=== PATIENT | female | born 2000 | race Hispanic/Latino ===

== ENCOUNTER 2018-03-06 23:06 | Inpatient (IN) | payer OTHER ==
[2018-03-06 23:45] VITALS: BMI 27.9
[2018-03-07 00:17] LABS: Amnisure Internal Control QC ACCEPTABLE (ACCEPTABLE)
[2018-03-07 00:27] LABS: Amnisure Test No Membranes Rupture (No Rupture)
--- NOTE | 2018-03-07 00:31 | PDOC.LDHP ---
Labor and Delivery H&P Chief complaint: contractions, loss of fluid HPI: Patient of Dr Madsen at 37 weeks 6 days, with scheduled induction by Dr Madsen soon, here for possible leakake. No VB, good FM, no trauma, no headaches, no fevers. Denies issues. review of systems: complete ROS performed and negative as per HPI. Current gestational age (weeks): 37 (6 days) Dating criteria: last menstrual period Grav: 1 Para: 0 Current complications: none Abnormal US findings: No Current medications: none Previous surgical history: none Allergies/Adverse Reactions: Allergies Allergy/AdvReac Type Severity Reaction Status Date / Time No Known Allergies Allergy Unverified 03/06/18 23:37 Social history: none - Physical Exam Vital signs reviewed and normal: yes General: NAD Heart: RRR Lungs: CTAB Abdomen: gravid FHT: category 1 Neligh contractions every: Irregular on toco - Vaginal Exam cm dilated: 2 Effacement: 75% Station: -1 - Assessment Latent phase of labor, at [facility]. - Plan Plan: observation in L&D (We will collect amnisure. No gross evidence of labor. CX unchnaged from prior office check exam. Observe inn L&D for 1 hour. Admit if evidence of ROM.)
[2018-03-07] MEDS ORDERED: Promethazine HCl 25 MG/ML VIAL IM PRN ×2 (00:51→13:38)
[2018-03-07] MEDS ORDERED: Lidocaine 1% (PF) 30 ML VIAL SC PRN (00:51)
[2018-03-07] MEDS ORDERED: HYDROcodone/Acetaminophen 5/325 mg Tablet PO PRN ×2 (00:51)
[2018-03-07] MEDS ORDERED: LR / Pitocin 40 units/1000 ml 1,000 ML IV PRN (00:51)
[2018-03-07] MEDS ORDERED: Ibuprofen 800 MG TAB PO PRN (00:51)
--- NOTE | 2018-03-07 00:51 | PDOC.EVN ---
Event Note - Event Note Event Note: Follow up: Amnisure was negative... However, the patient's story for leakage (by my interview again) was pretty concerning for ROM (persistent leakage down leg). Therefore, I performed another detailed vaginal exam at bedside. During cervical exam (), I pushed the fertal head up and had her cough and valsalva...that produced a small amount of clear fluid compatible with ROM. DX: false negative amnisure, positive evidence ROM on exam...will admit to Dr boswell. GBS negative. Plan d/w patient and family in detail.
--- NOTE | 2018-03-07 00:55 | PDOC.EVN ---
Event Note - Event Note Event Note: For DX of PROM...corrected EGA was03/15/18 by review of the record...38 weeks 6 days....I have ordered vaginal cytotec 25 mcg [address] Q3 [address]. Dr Madsen notified of patient admisison. She was scheduled today for induction by elbert at 5 pm.
[2018-03-07] MEDS ORDERED: Misoprostol 100 MCG TAB VAG SCH (01:00)
[2018-03-07] MEDS: Lactated Ringer's 1,000 ML IV SCH ×3 (02:00→13:09)
[2018-03-07 02:19] LABS: Hemoglobin 10.9 g/dL (12.0-16.0); Mean Corpuscular HGB CONC 35.7 g/dL (32.0-36.0); Mean Corpuscular Hemoglobin 31.9 pg (25.0-35.0); Mean Corpuscular Volume 89.2 fl (77.0-87.0); Mean Platelet Volume 7.4 fL (7.4-10.4); Platelet Count 283 thou/uL (130-400); RBC Distribution Width 11.5 % (11.5-14.5); Red Blood Cell (RBC) Count 3.41 mill/uL (4.00-5.20)
[2018-03-07] MEDS: LR 500 ML/Oxytocin 10 units 500 ML IVPB SCH ×2 (02:22→14:27)
[2018-03-07 03:00] LABS: HBSAg Index 0.74 S/CO (0-0.99); HIV (1/2) Antibody/Antigen Non-Reactive (NonReactive); HIV 1/2 INDEX 0.14 S/CO (<1.00); Hep B Surf Ag Non-Reactive S/CO (NonReactive)
[2018-03-07 05:16] LABS: Syphilis Antibody Nonreactive (Nonreactive); Syphilis Antibody Index 0.05 S/CO (<1.00 Non-Reactive)
[2018-03-07] MEDS ORDERED: DISCONTINUE ALL PREVIOUS NARCOTICS FS SCH (12:00)
[2018-03-07] MEDS ORDERED: Bupivacaine 0.5% 10 ML VIAL ONE (12:49)
[2018-03-07] MEDS ORDERED: Fentanyl 100 MCG/2 ML VIAL ONE (12:49)
[2018-03-07] MEDS: Bupivacaine 0.5% 20 ML, fentaNYL Citrate/PF 400 MCG in Sodium Chloride 0.9% 72 ML EPIDURAL SCH ×2 (13:10→20:00)
[2018-03-07] MEDS ORDERED: Fentanyl 100 MCG/2 ML VIAL I-THECAL ONE (13:35)
[2018-03-07] MEDS ORDERED: diphenhydrAMINE 50 MG/ML VIAL IVP PRN (13:38)
[2018-03-07] MEDS ORDERED: Naloxone HCl 0.4 mg/ml Vial IVP PRN ×2 (13:38)
[2018-03-07] MEDS ORDERED: ePHEDrine/0.9% NaCl/PF SYRINGE 50 mg/10 ml SLOW IVP PRN (13:38)
[2018-03-07] MEDS ORDERED: Ondansetron HCl/PF 4 MG/2 ML Vial IVP PRN ×2 (13:38→21:36)
[2018-03-07] MEDS ORDERED: Acetaminophen 325 MG TAB PO PRN (13:38)
[2018-03-07] MEDS ORDERED: Eucerin (Mineral Oil/Petrolatum,White) 30 gm Jar TOP PRN (13:38)
[2018-03-07] MEDS ORDERED: Lactated Ringer's 500 ML IV PRN (13:38)
[2018-03-07] MEDS ORDERED: Bupivacaine 0.25% 10 ML VIAL EPIDURAL ONE (13:45)
[2018-03-07] MEDS ORDERED: Communication Order-Pharmacy FS SCH (13:45)
[2018-03-07] MEDS ORDERED: Fentanyl 4mcg/Marcaine 0.1% Cassette 100 ML EPIDURAL SCH (13:45)
[2018-03-07] MEDS ORDERED: Ampicillin 2 GM in Sodium Chloride 0.9% 100 ML IVPB SCH (18:00)
[2018-03-07] MEDS ORDERED: Benzocaine/Menthol 20-0.5% 60 ML CAN TOP PRN (21:36)
[2018-03-07] MEDS ORDERED: Bisacodyl 10 MG SUPP PR PRN (21:36)
[2018-03-07] MEDS ORDERED: Acetaminophen/Codeine 30-300mg Tablet PO PRN ×2 (21:36)
[2018-03-07] MEDS ORDERED: Preparation H Ointment 28 GM TUBE PR PRN (21:36)
[2018-03-07] MEDS ORDERED: Zolpidem Tartrate 5 MG TAB PO PRN (21:36)
[2018-03-07] MEDS ORDERED: Lanolin Ointment 7 GM TUBE TOP PRN (21:36)
[2018-03-07] MEDS ORDERED: diphenhydrAMINE 25 MG CAP PO PRN (21:36)
[2018-03-07] MEDS ORDERED: Milk Of Magnesia 30 ML UDCUP PO PRN (21:36)
[2018-03-07] MEDS ORDERED: LR / Pitocin 40 units/1000 ml 1,000 ML IV SCH (21:45)
[2018-03-08] MEDS: Ampicillin/Sulbactam 3 GM in Sodium Chloride 0.9% 100 ML IVPB SCH ×3 (00:04→11:38)
[2018-03-08] MEDS: Ibuprofen 800 MG TAB PO SCH ×4 (00:30→22:07)
[2018-03-08] MEDS ORDERED: Sodium Chloride 0.9% 10 ML ONE ×2 (04:08→05:58)
[2018-03-08 06:09] LABS: Hemoglobin 9.5 g/dL (12.0-16.0); Mean Corpuscular HGB CONC 34.8 g/dL (32.0-36.0); Mean Corpuscular Hemoglobin 31.3 pg (25.0-35.0); Mean Platelet Volume 7.7 fL (7.4-10.4); Platelet Count 246 thou/uL (130-400); RBC Distribution Width 11.5 % (11.5-14.5); Red Blood Cell (RBC) Count 3.04 mill/uL (4.00-5.20); White Blood Cell (WBC) Count 23.3 thou/uL (4.8-10.8)
[2018-03-08] MEDS ORDERED: Adacel (T-DAP) 0.5 ML VIAL IM ONE (09:00)
[2018-03-08] MEDS: Docusate Calcium (SURFAK) 240 MG CAP PO SCH ×2 (10:06→21:26)
[2018-03-08] MEDS: Ferrous Sulfate 325 MG TAB PO SCH ×2 (10:06→17:43)
[2018-03-08] MEDS: Prenatal Vitamin 1 TAB PO SCH (10:06)
[2018-03-09] MEDS: Ampicillin/Sulbactam 3 GM in Sodium Chloride 0.9% 100 ML IVPB SCH ×2 (01:57→05:53)
[2018-03-09] MEDS: Ibuprofen 800 MG TAB PO SCH (05:57)
[2018-03-09] MEDS: Docusate Calcium (SURFAK) 240 MG CAP PO SCH (08:44)
[2018-03-09] MEDS: Prenatal Vitamin 1 TAB PO SCH (08:44)
[2018-03-09] MEDS: Ferrous Sulfate 325 MG TAB PO SCH (08:44)
[2018-03-09 09:28] VITALS: BP 112/53; TEMP 97.7
== END 2018-03-09 13:30 | disposition home or self-care (01) | DRG 774 ==
LOC: L&D/OP 23:06 → L&D 03-07 00:53 → 3SW 03-07 23:49
PROVIDERS: ADMIT Obstetrics & Gynecology; ATTEND Obstetrics & Gynecology
PROC: 10D07Z6 Extraction of Products of Conception, Vacuum, Via Natural or Artificial Opening (ICD-10-PCS; principal; 2018-03-07)
PROC: 0KQM0ZZ Repair Perineum Muscle, Open Approach (ICD-10-PCS; 2018-03-07)
PROC: 3E033VJ Introduction of Other Hormone into Peripheral Vein, Percutaneous Approach (ICD-10-PCS; 2018-03-07)
DX: O42.02 Full-term premature rupture of membranes, onset of labor within 24 hours of rupture (principal); O75.2 Pyrexia during labor, not elsewhere classified; Z37.0 Single live birth; O70.1 Second degree perineal laceration during delivery; Z23 Encounter for immunization; Z3A.38 38 weeks gestation of pregnancy
CPT/HCPCS: 36415; 51702; 84112; 85027; 85461; 86780; 87340; 87389; 90384; 90715; 96372; 99285; A4216; J0290; J0295; J0595; J2001; J2550; J3010; J3490; J7050; J7120

== ENCOUNTER 2019-03-26 00:30 | Inpatient (IN) | payer SELFPAY ==
[2019-03-26 01:05] VITALS: BMI 28.7
[2019-03-26 02:19] LABS: Hemoglobin 12.7 g/dL (12.0-16.0); Mean Corpuscular HGB CONC 35.9 g/dL (32.0-36.0); Mean Corpuscular Hemoglobin 32.4 pg (27.0-31.0); Mean Corpuscular Volume 90.4 fL (78.0-98.0); Mean Platelet Volume 7.5 fL (7.4-10.4); Platelet Count 327 thou/uL (130-400); Red Blood Cell (RBC) Count 3.93 mill/uL (4.20-5.40); White Blood Cell (WBC) Count 13.1 thou/uL (4.8-10.8)
[2019-03-26] MEDS ORDERED: Butorphanol Tartrate 1 MG/ML VIAL SLOW IVP PRN (02:33)
[2019-03-26] MEDS ORDERED: NS w/ Oxytocin 10 units 500 ML IV SCH (02:33)
[2019-03-26] MEDS ORDERED: Ibuprofen 800 MG TAB PO PRN (02:33)
[2019-03-26] MEDS ORDERED: Ondansetron PF 4 MG/2 ML Vial IVP PRN ×3 (02:33→13:32)
[2019-03-26] MEDS ORDERED: Lactated Ringer's 1,000 ML IV SCH (02:33)
[2019-03-26] MEDS ORDERED: NS / Oxytocin 40 units/1000ml 1,000 ML IV PRN (02:33)
[2019-03-26] MEDS ORDERED: Promethazine HCl 25 MG/ML VIAL IM PRN ×2 (02:33→03:16)
[2019-03-26] MEDS ORDERED: HYDROcodone/Acetaminophen 5/325 mg Tablet PO PRN ×2 (02:33)
[2019-03-26] MEDS ORDERED: Lidocaine 1% (PF) 30 ML VIAL SC PRN (02:33)
[2019-03-26 02:41] LABS: Amphetamine Not Detected (NotDetected); Barbiturates Screen Not Detected (NotDetected); Benzodiazepine Screen Not Detected (NotDetected); Cocaine Metabolite Screen Not Detected (NotDetected); Medtox Control Line Valid? VALID (VALID); Medtox Reader # READER 1; Methadone Not Detected (NotDetected); Methamphetamine Not Detected (NotDetected); Opiate Screen Not Detected (NotDetected); Oxycodone Screen Not Detected (NotDetected); Phencyclidine (PCP) Not Detected (NotDetected); THC/Cannabinoid Screen Not Detected (NotDetected); Tricyclic Screen Not Detected (NotDetected)
[2019-03-26] MEDS ORDERED: Penicillin G Potassium 5 MILL.UNITS in Sodium Chloride 0.9% 100 ML IVPB SCH (02:45)
[2019-03-26] MEDS ORDERED: Fentanyl 4 mcg/Bup 0.1% Cadd 100 ML ONE (02:48)
[2019-03-26] MEDS: Lactated Ringer's 1,000 ML IV SCH ×2 (02:53→14:40)
[2019-03-26 03:01] LABS: HBSAg Index 0.32 S/CO (0-0.99); Hep B Surf Ag Non-Reactive S/CO (NonReactive)
[2019-03-26 03:01] LABS: HBSAB Concentration 0.18 mIU/mL; HIV (1/2) Antibody/Antigen Non-Reactive (NonReactive); HIV 1/2 INDEX 0.18 S/CO (<1.00); Hep B Surf AB Non-Reactive (NonReactive)
[2019-03-26] MEDS ORDERED: Naloxone HCl 0.4 mg/ml Vial IVP PRN ×2 (03:16)
[2019-03-26] MEDS ORDERED: ePHEDrine/0.9% NaCl/PF SYRINGE 50 mg/10 ml SLOW IVP PRN (03:16)
[2019-03-26] MEDS ORDERED: diphenhydrAMINE 50 MG/ML VIAL IVP PRN (03:16)
[2019-03-26] MEDS ORDERED: Eucerin (Mineral Oil/Petrolatum,White) 30 gm Jar TOP PRN (03:16)
[2019-03-26] MEDS ORDERED: Lactated Ringer's 500 ML IV PRN (03:16)
[2019-03-26] MEDS ORDERED: Communication Order-Pharmacy FS SCH (03:30)
[2019-03-26] MEDS ORDERED: Fentanyl 4 mcg/Bupivacaine 0.1% Cassette 100 ML EPIDURAL SCH (03:30)
[2019-03-26 04:42] LABS: Syphilis Antibody Nonreactive (Nonreactive); Syphilis Antibody Index 0.05 S/CO (<1.00 Non-Reactive)
[2019-03-26] MEDS: Penicillin G 2.5 MILL.units 2.5 MILL.UNITS in Premix Bag 1 BAG IVPB SCH ×2 (06:27→14:40)
--- NOTE | 2019-03-26 07:27 | HP ---
TIME OF SERVICE: 644. PRESENTING COMPLAINT: Contractions at term with no care. HISTORY OF PRESENT ILLNESS: Ms. Vaughn is a 19-year-old G2, P1, at 38 to 39 weeks gestation by stated LMP. She has not received any care during this and reports she had a positive test back in October or September 2018. She reports onset of contractions at approximately 2300 on 03/25. She denies rupture of membranes. She reports an active fetus. ELECTRICAL ENGINEER HISTORY: The patient had a spontaneous vaginal delivery with Dr. Hunter Madsen of a 6-pound 11-ounce in March 2018. She has not sought care during this . PAST MEDICAL HISTORY: Denies. SURGICAL HISTORY: Denies. ALLERGIES: DENIES. MEDICATIONS: vitamins. SOCIAL HISTORY: Denies tobacco, alcohol, or IV drug abuse. FAMILY HISTORY: Noncontributory. REVIEW OF SYSTEMS: Noncontributory. PHYSICAL EXAMINATION: GENERAL: female complaining of contractions. VITAL SIGNS: Pulse 101, respirations 18, blood pressure 118/72, temperature 99.1. HEENT: Within normal limits. LUNGS: Clear to auscultation bilaterally. HEART: Regular rate and rhythm. BREASTS: Without masses bilaterally. ABDOMEN: Soft, in between contractions. Fundal height 38. FHTs 140s. Vulva without lesions. Vagina without discharge. Cervix 680, -1 cephalic. Bag of water intact. EXTREMITIES: Without clubbing, cyanosis, or edema. LABORATORY DATA: The patient's blood type was O negative at her previous delivery, where she received 1 amp of RhoGAM. Today, she is testing out as O negative blood type, but antibody screen is not reportable. Hematocrit is 35%. Urine drug screen is negative. Platelets are within normal limits. RPR is negative. Hepatitis B is nonreactive and HIV is negative. Group B strep is pending. DIAGNOSTIC DATA: Ultrasound reveals a fetus in cephalic presentation with a grossly normal anatomy scan. Estimated weight is 7 pounds 7 ounces. DEON of 8. IMPRESSION: Term labor, no care, group B strep status unknown, Rh negative with no RhoGAM during this , possible positive antibody screen. PLAN: Admission, group B strep prophylaxis, antibody quantification, epidural per patient's request, anticipate spontaneous vaginal delivery. Social work consult placed for no care status. Job ID: [id number]
[2019-03-26] MEDS ORDERED: NS / Oxytocin 40 units/1000ml 1,000 ML ONE (08:49)
[2019-03-26] MEDS ORDERED: Lidocaine 1% (PF) 30 ML VIAL ONE (08:49)
--- NOTE | 2019-03-26 09:17 | ULT ---
OB ULTRASOUND: Date: 03/26/19 INDICATION: In labor. No care. Assess size and dates. FINDINGS: There is a single, viable intrauterine . Gestational age by ultrasound is 38 weeks/0 days. BPD: 36 weeks/2 days HC: 39 weeks/1 day AC: 38 weeks/1 day FL: 38 weeks/1 day EFW: 3374 gm, consistent with 40 weeks/5 days. Placenta: Anterior. Presentation: Vertex. heart rate: 122 bpm. Amniotic Fluid: Low normal. DEON recorded at 8.2 cm. Cervix: Not adequately imaged. anatomy evaluated include intracranial contents, 4 chamber heart, stomach, kidneys, bladder, ex tremities, and 3 vessel cord. IMPRESSION: 38 weeks/0 days gestational age by ultrasound measurement. POS: OFF
[2019-03-26] MEDS ORDERED: Adacel (T-DAP) 0.5 ML SYRINGE IM ONE (13:32)
[2019-03-26] MEDS ORDERED: Lanolin Ointment 7 GM TUBE TOP PRN (13:32)
[2019-03-26] MEDS ORDERED: NS / Oxytocin 40 units/1000ml 1,000 ML IV SCH (13:32)
[2019-03-26] MEDS ORDERED: Milk Of Magnesia 30 ML UDCUP PO PRN (13:32)
[2019-03-26] MEDS ORDERED: Preparation H Ointment 28 GM TUBE PR PRN (13:32)
[2019-03-26] MEDS ORDERED: Bisacodyl 10 MG SUPP PR PRN (13:32)
[2019-03-26] MEDS ORDERED: diphenhydrAMINE 25 MG CAP PO PRN (13:32)
[2019-03-26] MEDS: Ibuprofen 800 MG TAB PO SCH ×2 (14:14→21:39)
[2019-03-26] MEDS: Acetaminophen 325 MG TAB PO PRN (17:20)
[2019-03-26] MEDS: Ferrous Sulfate 325 MG TAB PO SCH (17:21)
[2019-03-26] MEDS ORDERED: Bupivacaine/Epinephrine 0.25% 30 ML VIAL ONE (18:00)
--- NOTE | 2019-03-26 18:17 | OP ---
DATE OF PROCEDURE: 03/26/2019 DELIVERY NOTE: The patient delivered a female on 03/26/2019 at 9:31 a.m. by an uncomplicated term spontaneous vaginal delivery at an estimated 39 weeks gestation. Apgars were 7 and 9. Weight was 3436 g. Placenta delivered spontaneously followed by Pitocin infusion. Estimated quantity of blood loss 205 mL. There were no lacerations. Dr. Joyner was the delivering physician. Counts were correct. Mother and baby were stable in the room in the immediate . Job ID: [id number]
[2019-03-26] MEDS: Docusate Calcium (SURFAK) 240 MG CAP PO SCH (21:39)
[2019-03-27] MEDS: Ibuprofen 800 MG TAB PO SCH ×3 (06:01→23:08)
[2019-03-27 06:11] LABS: Hemoglobin 11.1 g/dL (12.0-16.0); Mean Corpuscular HGB CONC 34.9 g/dL (32.0-36.0); Mean Corpuscular Hemoglobin 31.8 pg (27.0-31.0); Mean Platelet Volume 7.4 fL (7.4-10.4); Platelet Count 259 thou/uL (130-400); RBC Distribution Width 12.9 % (11.5-14.5); Red Blood Cell (RBC) Count 3.51 mill/uL (4.20-5.40); White Blood Cell (WBC) Count 11.8 thou/uL (4.8-10.8)
[2019-03-27] MEDS: Ferrous Sulfate 325 MG TAB PO SCH ×2 (09:08→16:57)
[2019-03-27] MEDS: Docusate Calcium (SURFAK) 240 MG CAP PO SCH ×2 (09:09→20:45)
--- NOTE | 2019-03-27 09:35 | PRG ---
DATE OF SERVICE: 03/27/2019 SUBJECTIVE: The patient is a 19-year-old female, now is day 1, status post a term spontaneous vaginal delivery in the setting of no care. The patient reports that she is tolerating p.o., voiding on her own, having decreased lochia, and good pain control. OBJECTIVE: VITAL SIGNS: Today, blood pressure 111/73, temperature 98.2, pulse of 92, respiratory rate 18, and saturating 97% on room air. GENERAL: She appears to be in no acute distress. She is alert, oriented, cooperative, and pleasant to interact with. HEAD: Normocephalic and atraumatic. FUNDUS: Firm at the umbilicus -2. EXTREMITIES: Nontender. Nonedematous. LABORATORY DATA: Postdelivery hemoglobin 11.1, hematocrit 31.9, and platelets 259,000. ASSESSMENT AND PLAN: The patient is a 19-year-old female, who presented in labor with no care and delivered via uncomplicated term spontaneous vaginal delivery. We will continue in-house care with anticipation of discharge tomorrow. Job ID: [id number]
[2019-03-27] MEDS: Acetaminophen 325 MG TAB PO PRN (20:45)
[2019-03-28] MEDS: Ibuprofen 800 MG TAB PO SCH (06:04)
[2019-03-28 07:48] VITALS: BP 98/55; TEMP 98.4
[2019-03-28] MEDS: Ferrous Sulfate 325 MG TAB PO SCH (09:28)
[2019-03-28] MEDS: Docusate Calcium (SURFAK) 240 MG CAP PO SCH (09:29)
--- NOTE | 2019-03-28 21:19 | DIS ---
DATE OF ADMISSION: 03/26/2019 DATE OF DISCHARGE: 03/28/2019 ADMITTING DIAGNOSIS: Intrauterine estimated at 38 weeks, labor. No care. DISCHARGE DIAGNOSIS: Intrauterine estimated at 38 weeks, labor. No care. PROCEDURE: Term spontaneous vaginal delivery. HOSPITAL COURSE: The patient is a 19-year-old, G2, P1 female, who presented at 38-39 weeks gestation in active labor and had an uncomplicated vaginal delivery. Her course has been uncomplicated. She is now day #2. PHYSICAL EXAMINATION: VITAL SIGNS: Today, blood pressure is 98/55, temperature 98.4, pulse of 82, respiratory rate of 20, saturating 98% on room air. GENERAL: She appears to be in no acute distress. She is alert, oriented, cooperative, pleasant to interact with. HEENT: Head is normocephalic atraumatic. : Fundus is firm at the umbilicus -2. EXTREMITIES: Nontender, nonedematous. LABORATORY DATA: Her postdelivery hemoglobin is 11.1, hematocrit 31.9, platelets of 259,000. DISCHARGE INSTRUCTIONS: The patient is being discharged to home with ibuprofen. She has also been counseled as needed to take migraine Excedrin as she reports a mild headache that may be associated with wet tap over epidural. We also counseled if her headache becomes persistent or intolerable, Anesthesia, maybe, will place a blood patch. The patient has had no care of this ; however, she has been in contact with Dr. Madsen, the physician of her previous and will be planning on her care with him. The patient has also been counseled to seek medical attention should she experience fever, increasing pain or bleeding. Job ID: [id number]
== END 2019-03-28 11:45 | disposition home or self-care (01) | DRG 807 ==
LOC: L&D/OP 00:30 → L&D 02:31 → 3SW 12:35
PROVIDERS: ADMIT Obstetrics & Gynecology; ATTEND Obstetrics & Gynecology
PROC: 10E0XZZ Delivery of Products of Conception, External Approach (ICD-10-PCS; principal; 2019-03-26)
DX: O80 Encounter for full-term uncomplicated delivery (principal); Z37.0 Single live birth; Z3A.39 39 weeks gestation of pregnancy
CPT/HCPCS: 36415; 51702; 76815; 80306; 85027; 85461; 86706; 86762; 86780; 86850; 86900; 86901; 87081; 87086; 87340; 87389; 90384; 90715; 96372; 99285; J2001; J2540; J3490

== ENCOUNTER → 2020-02-27 20:27 | Inpatient (IN) | payer OTHER ==
[2020-02-26] MEDS: Lactated Ringer's 1,000 ML IV SCH ×2 (10:00→13:46)
[2020-02-26 10:07] VITALS: BMI 33.0
[2020-02-26 10:38] LABS: Hemoglobin 12.8 g/dL (12.0-16.0); Mean Corpuscular HGB CONC 34.4 g/dL (32.0-36.0); Mean Corpuscular Hemoglobin 30.8 pg (27.0-31.0); Mean Corpuscular Volume 89.4 fL (78.0-98.0); Mean Platelet Volume 7.6 fL (7.4-10.4); Platelet Count 384 thou/uL (130-400); RBC Distribution Width 12.8 % (11.5-14.5); Red Blood Cell (RBC) Count 4.16 mill/uL (4.20-5.40); White Blood Cell (WBC) Count 13.1 thou/uL (4.8-10.8)
[2020-02-26 11:20] LABS: HBSAg Index 0.18 S/CO (0-0.99); Hep B Surf Ag Non-Reactive S/CO (NonReactive)
[2020-02-26 11:24] LABS: Syphilis Antibody Nonreactive (Nonreactive); Syphilis Antibody Index 0.06 S/CO (<1.00 Non-Reactive)
[2020-02-26] MEDS: Penicillin G 2.5 MILL.units 2.5 MILL.UNITS in Premix Bag 1 BAG IVPB SCH ×2 (13:44→17:44)
[2020-02-26] MEDS: Ibuprofen 800 MG TAB PO SCH (22:28)
[2020-02-26] MEDS: Docusate Calcium (SURFAK) 240 MG CAP PO SCH (22:28)
--- NOTE | 2020-02-26 23:40 | PDOC.EVN ---
Event Note - Event Note Event Note: called to bedside for vaginal bleeding. pt delivered by tsvd at 1900, qbl 580cc. 361cc blood loss. Bimanual exam performed and 140cc blood loss. fundus firm. no membranes palpable. Pt was up to void just prior to exam. temp was 101.8 F. methergine 0.2mcg, 400mcg cytotec, 1000mg tylenol ordered.
[2020-02-27] MEDS: Ibuprofen 800 MG TAB PO SCH ×2 (06:23→14:04)
[2020-02-27] MEDS: Ferrous Sulfate 325 MG TAB PO SCH ×2 (08:13→18:04)
[2020-02-27] MEDS: Docusate Calcium (SURFAK) 240 MG CAP PO SCH (08:45)
[2020-02-27 11:31] VITALS: BP 105/52; TEMP 97.6
[2020-02-27 13:14] LABS: Hemoglobin 9.1 g/dL (12.0-16.0)
[2020-02-27 13:32] LABS: Hemoglobin 9.1 g/dL (12.0-16.0); Mean Corpuscular HGB CONC 34.8 g/dL (32.0-36.0); Mean Corpuscular Hemoglobin 31.7 pg (27.0-31.0); Mean Corpuscular Volume 91.2 fL (78.0-98.0); Mean Platelet Volume 6.7 fL (7.4-10.4); Platelet Count 184 thou/uL (130-400); Red Blood Cell (RBC) Count 2.86 mill/uL (4.20-5.40); White Blood Cell (WBC) Count 15.2 thou/uL (4.8-10.8)
[~2020-02-27 20:27] MED LIST: Acetaminophen 325 MG TAB PO PRN; Acetaminophen 500 MG TAB PO PRN; Acetaminophen 500 MG TAB PO SCH; Acetaminophen/Codeine 30-300mg Tablet PO PRN; Adacel (T-DAP) 0.5 ML SYRINGE IM ONE; Benzocaine-Menthol 82.5 ML CAN TOP PRN; Bisacodyl 10 MG SUPP PR PRN; Bupivacaine 0.25% HCL 30 ML VIAL ONE; Butorphanol Tartrate 1 MG/ML VIAL SLOW IVP PRN; Communication Order-Pharmacy FS SCH; Diphenoxylate HCl/Atropine Tablet PO PRN; Docusate 100 MG CAP PO PRN; EPHEDRINE 25 MG/5 ML SYRINGE SLOW IVP PRN; Fentanyl 4 mcg/Bup 0.1% Cadd 100 ML ONE; Fentanyl 4 mcg/Bupivacaine 0.1% Cassette 100 ML EPIDURAL SCH; HYDROcodone/Acetaminophen 5/325 mg Tablet PO PRN; Ibuprofen 800 MG TAB PO PRN; Lactated Ringer's 500 ML IV PRN; Lanolin Ointment 7 GM TUBE TOP PRN; Lidocaine 1% (PF) 30 ML VIAL SC PRN; Methylergonovine 0.2 MG/ML VIAL IM SCH; Milk Of Magnesia 30 ML UDCUP PO PRN; Misoprostol 200 MCG TAB PO SCH; Misoprostol 200 MCG TAB PR PRN; Misoprostol 200 MCG TAB VAG PRN; NS / Oxytocin 40 units/1000ml 1,000 ML IV PRN; NS / Oxytocin 40 units/1000ml 1,000 ML IV SCH; NS w/ Oxytocin 10 units 500 ML IV SCH; Naloxone HCl 0.4 mg/ml Vial IVP PRN; Ondansetron PF 4 MG/2 ML Vial IVP PRN; Penicillin G Potassium 5 MILL.UNITS VIAL ONE; Penicillin G Potassium 5 MILL.UNITS in Sodium Chloride 0.9% 100 ML IVPB SCH; Prenatal Vitamin 1 TAB PO SCH; Preparation H Ointment 28 GM TUBE PR PRN; Promethazine HCl 25 MG/ML VIAL IM PRN; Sodium Chloride 0.9% 100 ML ONE; Zolpidem Tartrate 5 MG TAB PO PRN; diphenhydrAMINE 25 MG CAP PO PRN; diphenhydrAMINE 50 MG/ML VIAL IVP PRN; hydrALAZINE 20 MG/ML VIAL SLOW IVP PRN
== END | disposition home or self-care (01) | DRG 807 ==
LOC: L&D 02-26 09:51 → 3SE 02-26 21:55
PROVIDERS: ADMIT Obstetrics & Gynecology; ATTEND Obstetrics & Gynecology
PROC: 10E0XZZ Delivery of Products of Conception, External Approach (ICD-10-PCS; principal; 2020-02-26)
DX: O80 Encounter for full-term uncomplicated delivery (principal); Z37.0 Single live birth; Z3A.38 38 weeks gestation of pregnancy
CPT/HCPCS: 36415; 51702; 85014; 85018; 85027; 85461; 86780; 86850; 86900; 86901; 87340; J2210; J2540; J2590; J3490; S0020

== ENCOUNTER 2020-07-27 06:19 | Outpatient (CLI) | payer OTHER ==
[2020-07-27 14:24] LABS: #Basophils 0.1 thou/uL (0.0-0.2); #Eosinphils 0.3 thou/uL (0.0-0.7); #Lymphocytes 3.3 thou/uL (1.20-3.40); #Monocytes 0.6 thou/uL (0.11-0.59); #Neutrophils 5.3 thou/uL (1.40-6.50); %Basophils 0.8 % (0.0-1.0); %Eosinophils 2.7 % (0.0-10.0); %Lymphocytes 34.9 % (21.0-51.0); %Monocytes 5.8 % (0.0-10.0); %Neutrophils 55.8 % (42.0-75.0); Hemoglobin 13.7 g/dL (12.0-16.0); Mean Corpuscular HGB CONC 33.3 g/dL (32.0-36.0); Mean Platelet Volume 8.5 fL (7.4-10.4); Platelet Count 380 thou/uL (130-400); Red Blood Cell (RBC) Count 4.73 mill/uL (4.20-5.40); White Blood Cell (WBC) Count 9.5 thou/uL (4.8-10.8)
[2020-07-27 14:39] LABS: BHCG - Serum Negative (NEGATIVE); Pregs Control Background? CLEAR/WHITE (CLR/WHITE); Pregs Control Bar Appear? YES (CONTROL BAR)
[2020-07-27 14:50] LABS: Anion Gap 14 mmol/L (10-20); BUN (Urea Nitrogen) 9 mg/dL (7.0-18.7); Calc. Creatinine Clearance 0 mL/min (70-130); Calcium 9.6 mg/dL (7.8-10.44); Carbon Dioxide 24 mmol/L (22-29); Chloride 107 mmol/L (98-107); Estimated GFR-MDRD Greater than 90; Glucose 97 mg/dL (70-105); Potassium 4.6 mmol/L (3.5-5.1); Sodium 140 mmol/L (136-145)
[2020-07-28 13:22] LABS: SARS-CoV-2 MS2 Positive; SARS-CoV-2 N Gene Negative; SARS-CoV-2 S Gene Negative; SARS-CoV-2 by NAA Not Detected (NotDetected); SARS-CoV-2 orf1ab Negative
== END 2020-07-27 06:20 | disposition home or self-care (01) ==
LOC: LABBT 06:19
PROVIDERS: ATTEND Surgery
DX: Z01.812 Encounter for preprocedural laboratory examination (principal); Z20.828 Contact with and (suspected) exposure to other viral communicable diseases; R22.2 Localized swelling, mass and lump, trunk
CPT/HCPCS: 80048; 84703; 85025; 87635; U0003

== ENCOUNTER 2020-07-30 06:17 | Day surgery (SDC) | payer OTHER ==
[2020-07-28 11:50] VITALS: BMI 29.5
[2020-07-30] MEDS ORDERED: Bupivacaine 0.25% HCL 30 ML VIAL ONE (06:49)
[2020-07-30] MEDS ORDERED: Fentanyl 100 MCG/2 ML VIAL ONE (06:49)
[2020-07-30] MEDS ORDERED: Lidocaine 1% w/Epinephrine 1:100K 20 ML VIAL ONE (06:49)
[2020-07-30] MEDS ORDERED: HYDROmorphone 0.5 MG/0.5 ML SYRINGE ONE (06:50)
[2020-07-30] MEDS ORDERED: Midazolam HCl 2 mg/2 ml Vial ONE (07:32)
[2020-07-30] MEDS ORDERED: Meperidine HCl/PF 25 MG/ML VIAL ONE (08:43)
[2020-07-30] MEDS ORDERED: Dexamethasone 20 MG/5 ML VIAL ONE (09:07)
[2020-07-30] MEDS ORDERED: PHENYLEPHRINE-NS 100 MCG/ML 10 ML SYRINGE ONE (09:07)
[2020-07-30] MEDS ORDERED: Ondansetron PF 4 MG/2 ML Vial ONE (09:07)
[2020-07-30] MEDS ORDERED: Lidocaine 1% PF 5 ML VIAL ONE (09:07)
[2020-07-30] MEDS ORDERED: Ketorolac Tromethamine 30 MG/ML VIAL ONE (09:07)
[2020-07-30] MEDS ORDERED: PROPOFOL 200 MG/20 ML VIAL ONE (09:07)
--- NOTE | 2020-07-30 19:00 | OP ---
DATE OF PROCEDURE: 07/30/2020 POSTOPERATIVE DIAGNOSIS: Right axillary mass. POSTOPERATIVE DIAGNOSIS: Right axillary mass. PROCEDURE PERFORMED: Right axillary mass excision. ANESTHESIA: General. ESTIMATED BLOOD LOSS: Minimal. COMPLICATIONS: None. SPECIMENS: Right axillary mass. DESCRIPTION OF PROCEDURE: The patient was taken to the operating room and laid supine on the operating room table. After general anesthetic was obtained, the right axilla, chest and arm were prepped and draped in a sterile fashion. An elliptical incision was used to ellipse out the skin on top of this right axillary mass. The mass was removed and sent to Path for final diagnosis. The wound was irrigated and closed using 3-0 Vicryl, 4-0 Monocryl, and Dermabond. The patient was sent to Recovery in stable condition. All instrument counts, needle counts, and lap counts were correct. Job ID: [id number]
== END 2020-07-30 10:27 | disposition home or self-care (01) ==
LOC: SDC 06:17
PROVIDERS: ATTEND Surgery
PROC: 0HBT0ZZ Excision of Right Breast, Open Approach (ICD-10-PCS; principal; 2020-07-30)
DX: N60.21 Fibroadenosis of right breast (principal); N60.31 Fibrosclerosis of right breast
CPT/HCPCS: 88305; J0690; J1100; J1170; J1885; J2175; J2250; J2405; J2704; J3010; S0020